=== PATIENT | female | born 1970 | race Two or more races ===

== ENCOUNTER 2024-02-11 13:47 | Inpatient (IN) | payer MEDICAID ==
[~2024-02-11] VITALS: Ht 157.5 cm; Wt 72.7 kg
[2024-02-11 01:00] VITALS: RESP 14; O2SAT 99
[2024-02-11 15:04] LABS: BASOPHILS # (AUTO) 0.1 X10'3 (0-0.2); BASOPHILS % (AUTO) 1.3 % (0-1); EOSINOPHILS % (AUTO) 0.8 % (0-6); HEMOGLOBIN 7.4 g/dl (12.0-16.0); LYMPHOCYTES % (AUTO) 20.6 % (21-51); MEAN CORPUSCULAR HEMOGLOBIN 32.8 PG (27.0-31.0); MEAN CORPUSCULAR HGB CONC 33.5 g/dL (33.0-36.5); MEAN CORPUSCULAR VOLUME 97.8 FL (78-98); MEAN PLATELET VOLUME 6.9 FL (7.4-10.4); MONOCYTES # (AUTO) 0.3 X10'3 (0-0.9); MONOCYTES % (AUTO) 5.8 % (2-12); NEUTROPHILS # (AUTO) 3.6 X10'3 (1.8-7.7); NEUTROPHILS % (AUTO) 71.5 % (42-75); RED BLOOD COUNT 2.25 X10'6 (4.20-5.60); RED CELL DISTRIBUTION WIDTH 19.7 % (11.5-14.5)
[2024-02-11 15:21] LABS: PLATELET COUNT 47 X10'3 (140-440)
[2024-02-11 15:54] LABS: PLATELET ESTIMATE NORMAL
[2024-02-11 15:55] LABS: ANISOCYTOSIS 2+; ELLIPTOCYTES FEW; POLYCHROMASIA FEW; ROULEAUX 1+; SPHEROCYTES 1+; TARGET CELLS FEW
[2024-02-11] MEDS ORDERED: magnesium sulf-water 2g/50mL 50 ML IV PRN (16:20)
[2024-02-11] MEDS ORDERED: magnesium sulf-water 4G/100mL 100 ML IV PRN (16:20)
[2024-02-11] MEDS ORDERED: acetaminophen 325mg tablet PO PRN ×2 (16:20)
[2024-02-11] MEDS ORDERED: potassium Cl 20 mEq SR tablet PO PRN ×2 (16:20)
[2024-02-11] MEDS ORDERED: potassium Cl 40MEQ/1/2NS 520ml 520 ML IV PRN (16:20)
[2024-02-11] MEDS ORDERED: haloperidol lactate 5mg/ml inj IM PRN (16:25)
[2024-02-11] MEDS ORDERED: haloperidol 5mg tablet PO PRN (16:25)
[2024-02-11] MEDS: normal saline 1000ml 1,000 ML IV SCH (17:04)
[2024-02-11] MEDS: morphine 2 MG/ML inj. syringe IV PRN (17:32)
[2024-02-11 18:32] LABS: ALANINE AMINOTRANSFERASE 16 U/L (12-78); ALBUMIN 2.2 G/DL (3.4-5.0); ALKALINE PHOSPHATASE 103 IU/L (46-116); ANION GAP 13 (8-16); ASPARTATE AMINO TRANSFERASE 135 U/L (10-37); BILIRUBIN,TOTAL 4.6 MG/DL (0.1-1.0); BLOOD UREA NITROGEN 6 MG/DL (7-18); BUN/CREATININE RATIO 4.2 (10.0-20.0); CALCIUM 7.3 MG/DL (8.5-10.1); CHLORIDE 109 MMOL/L (99-107); CREATININE 1.42 MG/DL (0.40-0.90); FERRITIN 69 NG/ML (8-252); POTASSIUM 4.5 MMOL/L (3.5-5.1); SODIUM 143 MMOL/L (135-145); eCRCL 36 ML/MIN; eGFR 39 ML/MIN
[2024-02-11 18:35] LABS: ALBUMIN/GLOBULIN RATIO 0.4 (1.1-1.5); TOTAL PROTEIN 7.6 G/DL (6.4-8.2)
[2024-02-11] MEDS ORDERED: lactulose 20gm/30ml cup PO SCH (18:55)
[2024-02-11] MEDS ORDERED: spironolactone 25 MG tablet PO SCH (19:00)
[2024-02-11 19:02] LABS: INR 1.6 INR; PROTHROMBIN TIME 16.4 SECONDS (9.0-12.0)
[2024-02-11 19:06] LABS: GLUCOSE 43 MG/DL (70-104)
[2024-02-11] MEDS ORDERED: spironolactone 50 MG tablet PO SCH (19:08)
[2024-02-11 19:10] LABS: HEMOGLOBIN A1C 4.7 % (4.5-6.2)
[2024-02-11 19:20] LABS: % IRON SATURATION 93 % (11-46); IRON 175 UG/DL (49-151); TOTAL IRON BINDING CAPACITY 189 UG/DL (259-388)
[2024-02-11] MEDS: thiamine 100mg/ml 2ml inj. IV ONE (19:25)
[2024-02-11] MEDS: dextrose 50%-water 50ml dispensing syringe IV ONE (19:27)
[2024-02-11] MEDS: lactulose 20gm/30ml cup PO SCH (19:30)
[2024-02-11] MEDS: octreotide inj. 500 MCG in normal saline 100ml IV soln 97.5 ML IV SCH (19:44)
[2024-02-11 19:54] LABS: HEMOGLOBIN 7.1 g/dl (12.0-16.0); MEAN CORPUSCULAR HGB CONC 33.5 g/dL (33.0-36.5); MEAN CORPUSCULAR VOLUME 98.4 FL (78-98); MEAN PLATELET VOLUME 8.1 FL (7.4-10.4); RED BLOOD COUNT 2.14 X10'6 (4.20-5.60); RED CELL DISTRIBUTION WIDTH 19.9 % (11.5-14.5); WHITE BLOOD COUNT 4.7 X10'3 (4.5-11.0)
[2024-02-11] MEDS: K and/or MAG REPLACEMENT MC SCH (20:00)
[2024-02-11] MEDS: heparin, porcine 5000 units/ml vial SQ SCH (20:00)
[2024-02-11 20:02] LABS: HEMATOCRIT 21.1 % (35.0-45.0); PLATELET COUNT 32 X10'3 (140-440)
[2024-02-11 20:16] LABS: POTASSIUM 4.5 MMOL/L (3.5-5.1); THYROID STIMULATING HORMONE 3.29 ulU/ml (0.34-4.50); eCRCL 36 ML/MIN; eGFR 39 ML/MIN
[2024-02-11] MEDS: propranolol 10mg tablet PO SCH (21:05)
[2024-02-11] MEDS: rifaximin 550mg tablet PO SCH (21:05)
[2024-02-11] MEDS: pantoprazole 40MG/NS 100ML BAG 100 ML IV SCH (21:05)
[2024-02-11] MEDS: LORazepam 2 mg/ml vial IV PRN (21:27)
[2024-02-11 23:16] LABS: MEAN CORPUSCULAR HGB CONC 33.5 g/dL (33.0-36.5); MEAN CORPUSCULAR VOLUME 98.7 FL (78-98); MEAN PLATELET VOLUME 7.8 FL (7.4-10.4); RED BLOOD COUNT 2.06 X10'6 (4.20-5.60); RED CELL DISTRIBUTION WIDTH 19.8 % (11.5-14.5)
[2024-02-11 23:21] LABS: HEMOGLOBIN 6.8 g/dl (12.0-16.0)
[2024-02-11 23:22] LABS: HEMATOCRIT 20.3 % (35.0-45.0); PLATELET COUNT 39 X10'3 (140-440)
[2024-02-11 23:35] VITALS: BP 122/67; PULSE 73; RESP 20; TEMP 97.3; O2SAT 99
[2024-02-12] VITALS (16 sets, daily range): BP systolic 106–140; BP diastolic 45–70; PULSE 67–80; RESP 11–21; TEMP 97.1–99.3; O2SAT 90–100
[2024-02-12] MEDS ORDERED: DEXTROSE 15 GM of carb/4 tabs (each vial/BOTTLE has 4 tablets) PO PRN ×2 (01:45)
[2024-02-12] MEDS ORDERED: glucagon, human recombinant 1mg kit SUBCUT PRN (01:45)
[2024-02-12] MEDS ORDERED: dextrose 50%-water 50ml dispensing syringe IV PRN (01:45)
[2024-02-12] MEDS: dextrose 50%-water 50ml dispensing syringe IV PRN (02:05)
[2024-02-12] MEDS: thiamine 100mg tablet PO SCH (07:42)
[2024-02-12] MEDS: multivitamins, therapeutics tablet PO SCH (07:42)
[2024-02-12] MEDS: folic acid 1mg tablet PO SCH (07:43)
[2024-02-12] MEDS: HYDROcodone/acetaminophen 5mg/325mg tablet PO PRN (07:44)
[2024-02-12 08:32] LABS: BASOPHILS # (AUTO) 0.1 X10'3 (0-0.2); BASOPHILS % (AUTO) 1.1 % (0-1); EOSINOPHILS # (AUTO) 0.1 X10'3 (0-0.9); EOSINOPHILS % (AUTO) 1.2 % (0-6); HEMATOCRIT 25.4 % (35.0-45.0); HEMOGLOBIN 8.7 g/dl (12.0-16.0); LYMPHOCYTES # (AUTO) 0.5 X10'3 (1.1-4.8); LYMPHOCYTES % (AUTO) 10.7 % (21-51); MEAN CORPUSCULAR HEMOGLOBIN 32.9 PG (27.0-31.0); MEAN CORPUSCULAR HGB CONC 34.1 g/dL (33.0-36.5); MEAN CORPUSCULAR VOLUME 96.5 FL (78-98); MEAN PLATELET VOLUME 7.6 FL (7.4-10.4); MONOCYTES # (AUTO) 0.3 X10'3 (0-0.9); MONOCYTES % (AUTO) 5.4 % (2-12); NEUTROPHILS # (AUTO) 4.1 X10'3 (1.8-7.7); NEUTROPHILS % (AUTO) 81.6 % (42-75); RED BLOOD COUNT 2.63 X10'6 (4.20-5.60); RED CELL DISTRIBUTION WIDTH 19.8 % (11.5-14.5)
[2024-02-12 08:45] LABS: INR 1.6 INR; PROTHROMBIN TIME 16.3 SECONDS (9.0-12.0)
[2024-02-12 09:08] LABS: PLATELET COUNT 41 X10'3 (140-440)
[2024-02-12 09:13] LABS: ALANINE AMINOTRANSFERASE 15 U/L (12-78); ALBUMIN 2.2 G/DL (3.4-5.0); ALKALINE PHOSPHATASE 110 IU/L (46-116); ANION GAP 11 (8-16); ASPARTATE AMINO TRANSFERASE 140 U/L (10-37); BILIRUBIN,TOTAL 6.2 MG/DL (0.1-1.0); BLOOD UREA NITROGEN 6 MG/DL (7-18); BUN/CREATININE RATIO 4.4 (10.0-20.0); CALCIUM 7.4 MG/DL (8.5-10.1); CHLORIDE 108 MMOL/L (99-107); CREATININE 1.35 MG/DL (0.40-0.90); GLUCOSE 89 MG/DL (70-104); LIPASE 26 U/L (16-77); MAGNESIUM 1.6 MG/DL (1.5-2.4); POTASSIUM 4.4 MMOL/L (3.5-5.1); SODIUM 141 MMOL/L (135-145); TOTAL CARBON DIOXIDE 22.5 MMOL/L (24-32); eCRCL 38 ML/MIN; eGFR 41 ML/MIN
[2024-02-12 09:16] LABS: ALBUMIN/GLOBULIN RATIO 0.4 (1.1-1.5); PHOSPHORUS 3.6 MG/DL (2.3-4.5); TOTAL PROTEIN 7.9 G/DL (6.4-8.2)
[2024-02-12] MEDS: CefTRIAXone 2gm/D5W 50ml BAG 50 ML IV ONE (11:16)
[2024-02-12 11:19] LABS: HEMATOCRIT 23.8 % (35.0-45.0); MEAN CORPUSCULAR HEMOGLOBIN 32.6 PG (27.0-31.0); MEAN CORPUSCULAR HGB CONC 33.8 g/dL (33.0-36.5); MEAN CORPUSCULAR VOLUME 96.5 FL (78-98); MEAN PLATELET VOLUME 7.8 FL (7.4-10.4); RED BLOOD COUNT 2.46 X10'6 (4.20-5.60); RED CELL DISTRIBUTION WIDTH 19.9 % (11.5-14.5)
[2024-02-12 11:22] LABS: PLATELET COUNT 37 X10'3 (140-440)
[2024-02-12 12:04] LABS: BASOPHILS # (AUTO) 0.1 X10'3 (0-0.2); EOSINOPHILS # (AUTO) 0.1 X10'3 (0-0.9); LYMPHOCYTES # (AUTO) 0.6 X10'3 (1.1-4.8); MEAN PLATELET VOLUME 7.8 FL (7.4-10.4); MONOCYTES # (AUTO) 0.3 X10'3 (0-0.9); RED BLOOD COUNT 2.45 X10'6 (4.20-5.60); WHITE BLOOD COUNT 5.1 X10'3 (4.5-11.0)
[2024-02-12 12:06] LABS: BASOPHILS % (AUTO) 1.5 % (0-1); EOSINOPHILS % (AUTO) 1.6 % (0-6); HEMATOCRIT 23.6 % (35.0-45.0); LYMPHOCYTES % (AUTO) 11.4 % (21-51); MEAN CORPUSCULAR HEMOGLOBIN 32.5 PG (27.0-31.0); MEAN CORPUSCULAR HGB CONC 33.8 g/dL (33.0-36.5); MEAN CORPUSCULAR VOLUME 96.4 FL (78-98); MONOCYTES % (AUTO) 6.2 % (2-12); NEUTROPHILS % (AUTO) 79.3 % (42-75); RED CELL DISTRIBUTION WIDTH 19.9 % (11.5-14.5)
[2024-02-12 12:12] LABS: PLATELET COUNT 33 X10'3 (140-440)
[2024-02-12] MEDS ORDERED: LIDOcaine 2% Viscous 15ml cup ONE (14:15)
[2024-02-12] MEDS ORDERED: MIDAZolam 1 MG/ML 5ML VIAL ONE (14:16)
[2024-02-12] MEDS ORDERED: fentaNYL/PF 50MCG/1 ML 2ML syringe ONE (14:16)
[2024-02-12 17:27] LABS: HEMATOCRIT 24.3 % (35.0-45.0); HEMOGLOBIN 8.1 g/dl (12.0-16.0); MEAN CORPUSCULAR HEMOGLOBIN 32.8 PG (27.0-31.0); MEAN CORPUSCULAR HGB CONC 33.5 g/dL (33.0-36.5); MEAN CORPUSCULAR VOLUME 97.8 FL (78-98); MEAN PLATELET VOLUME 7.7 FL (7.4-10.4); RED BLOOD COUNT 2.48 X10'6 (4.20-5.60); RED CELL DISTRIBUTION WIDTH 20.1 % (11.5-14.5)
[2024-02-12 17:30] LABS: PLATELET COUNT 34 X10'3 (140-440)
[2024-02-12] MEDS ORDERED: lactulose 20gm/30ml cup PO SCH (19:23)
[2024-02-12 20:27] LABS: BASOPHILS # (AUTO) 0.1 X10'3 (0-0.2); BASOPHILS % (AUTO) 1.1 % (0-1); EOSINOPHILS # (AUTO) 0.1 X10'3 (0-0.9); EOSINOPHILS % (AUTO) 1.1 % (0-6); HEMATOCRIT 24.8 % (35.0-45.0); HEMOGLOBIN 8.3 g/dl (12.0-16.0); LYMPHOCYTES # (AUTO) 0.7 X10'3 (1.1-4.8); LYMPHOCYTES % (AUTO) 15.6 % (21-51); MEAN CORPUSCULAR HGB CONC 33.2 g/dL (33.0-36.5); MEAN CORPUSCULAR VOLUME 99.4 FL (78-98); MEAN PLATELET VOLUME 7.5 FL (7.4-10.4); MONOCYTES # (AUTO) 0.3 X10'3 (0-0.9); MONOCYTES % (AUTO) 5.9 % (2-12); NEUTROPHILS # (AUTO) 3.6 X10'3 (1.8-7.7); NEUTROPHILS % (AUTO) 76.3 % (42-75); RED CELL DISTRIBUTION WIDTH 19.9 % (11.5-14.5); WHITE BLOOD COUNT 4.7 X10'3 (4.5-11.0)
[2024-02-12 20:42] LABS: PLATELET COUNT 33 X10'3 (140-440)
[2024-02-12] MEDS: carVEDilol 3.125mg tablet PO SCH (21:13)
[2024-02-12] MEDS: pantoprazole 40 MG vial IV SCH (21:14)
[2024-02-12 22:46] LABS: HEMATOCRIT 22.8 % (35.0-45.0); HEMOGLOBIN 7.7 g/dl (12.0-16.0); MEAN CORPUSCULAR HEMOGLOBIN 32.7 PG (27.0-31.0); MEAN CORPUSCULAR HGB CONC 33.6 g/dL (33.0-36.5); MEAN CORPUSCULAR VOLUME 97.3 FL (78-98); MEAN PLATELET VOLUME 7.6 FL (7.4-10.4); RED BLOOD COUNT 2.35 X10'6 (4.20-5.60); RED CELL DISTRIBUTION WIDTH 20.2 % (11.5-14.5); WHITE BLOOD COUNT 4.5 X10'3 (4.5-11.0)
[2024-02-12 23:14] LABS: PLATELET COUNT 37 X10'3 (140-440)
[2024-02-13] VITALS (11 sets, daily range): BP systolic 94–122; BP diastolic 47–57; PULSE 70–76; RESP 12–21; TEMP 97.2–99.9; O2SAT 91–100
[2024-02-13 06:49] LABS: EOSINOPHILS # (AUTO) 0.1 X10'3 (0-0.9); MONOCYTES # (AUTO) 0.2 X10'3 (0-0.9); NEUTROPHILS # (AUTO) 2.6 X10'3 (1.8-7.7); RED CELL DISTRIBUTION WIDTH 19.9 % (11.5-14.5); WHITE BLOOD COUNT 3.7 X10'3 (4.5-11.0)
[2024-02-13 06:51] LABS: HEMOGLOBIN 7.3 g/dl (12.0-16.0); LYMPHOCYTES # (AUTO) 0.9 X10'3 (1.1-4.8); LYMPHOCYTES % (AUTO) 23.4 % (21-51); MEAN CORPUSCULAR HEMOGLOBIN 32.5 PG (27.0-31.0); MEAN CORPUSCULAR HGB CONC 33.3 g/dL (33.0-36.5); MEAN CORPUSCULAR VOLUME 97.5 FL (78-98); MEAN PLATELET VOLUME 8.5 FL (7.4-10.4); MONOCYTES % (AUTO) 4.6 % (2-12); RED BLOOD COUNT 2.26 X10'6 (4.20-5.60)
[2024-02-13 07:00] LABS: INR 1.9 INR; PROTHROMBIN TIME 18.6 SECONDS (9.0-12.0)
[2024-02-13 07:02] LABS: ALANINE AMINOTRANSFERASE 7 U/L (12-78); ALBUMIN 1.9 G/DL (3.4-5.0); ALKALINE PHOSPHATASE 92 IU/L (46-116); ANION GAP 4 (8-16); ASPARTATE AMINO TRANSFERASE 95 U/L (10-37); BILIRUBIN,TOTAL 5.2 MG/DL (0.1-1.0); BLOOD UREA NITROGEN 10 MG/DL (7-18); BUN/CREATININE RATIO 5.4 (10.0-20.0); CALCIUM 7.2 MG/DL (8.5-10.1); CHLORIDE 109 MMOL/L (99-107); CREATININE 1.86 MG/DL (0.40-0.90); GLUCOSE 164 MG/DL (70-104); LIPASE 21 U/L (16-77); MAGNESIUM 1.3 MG/DL (1.5-2.4); SODIUM 139 MMOL/L (135-145); TOTAL CARBON DIOXIDE 26.1 MMOL/L (24-32); eCRCL 27 ML/MIN; eGFR 28 ML/MIN
[2024-02-13 07:06] LABS: ALBUMIN/GLOBULIN RATIO 0.4 (1.1-1.5); PHOSPHORUS 2.4 MG/DL (2.3-4.5); TOTAL PROTEIN 6.8 G/DL (6.4-8.2)
[2024-02-13 07:35] LABS: PLATELET COUNT 26 X10'3 (140-440)
[2024-02-13 07:38] LABS: ANISOCYTOSIS 2+; PLATELET ESTIMATE DECREASED; TOTAL CELLS COUNTED 100
[2024-02-13] MEDS ORDERED: CefTRIAXone/D5W-Rocephin 1gm 50 ML IV SCH (08:00)
[2024-02-13] MEDS: ondansetron/PF 4mg/2ml inj IV PRN (09:10)
[2024-02-13] MEDS: LORazepam 1 MG tablet PO PRN (10:33)
[2024-02-13 12:09] LABS: BASOPHILS # (AUTO) 0.1 X10'3 (0-0.2); BASOPHILS % (AUTO) 2.7 % (0-1); EOSINOPHILS # (AUTO) 0.1 X10'3 (0-0.9); EOSINOPHILS % (AUTO) 1.8 % (0-6); HEMATOCRIT 23.2 % (35.0-45.0); HEMOGLOBIN 7.7 g/dl (12.0-16.0); LYMPHOCYTES # (AUTO) 0.8 X10'3 (1.1-4.8); LYMPHOCYTES % (AUTO) 22.7 % (21-51); MEAN CORPUSCULAR HEMOGLOBIN 32.7 PG (27.0-31.0); MEAN CORPUSCULAR HGB CONC 33.1 g/dL (33.0-36.5); MEAN CORPUSCULAR VOLUME 98.6 FL (78-98); MEAN PLATELET VOLUME 7.2 FL (7.4-10.4); MONOCYTES # (AUTO) 0.2 X10'3 (0-0.9); MONOCYTES % (AUTO) 4.7 % (2-12); NEUTROPHILS # (AUTO) 2.4 X10'3 (1.8-7.7); NEUTROPHILS % (AUTO) 68.1 % (42-75); RED BLOOD COUNT 2.35 X10'6 (4.20-5.60); RED CELL DISTRIBUTION WIDTH 19.9 % (11.5-14.5); WHITE BLOOD COUNT 3.5 X10'3 (4.5-11.0)
[2024-02-13 12:12] LABS: PLATELET COUNT 39 X10'3 (140-440)
[2024-02-13] MEDS: spironolactone 25 MG tablet PO SCH (14:45)
[2024-02-13 15:28] LABS: CREATININE 1.95 MG/DL (0.40-0.90); eCRCL 26 ML/MIN; eGFR 27 ML/MIN
[2024-02-13 15:45] LABS: POTASSIUM 4.2 MMOL/L (3.5-5.1)
[2024-02-13 19:20] LABS: BASOPHILS % (AUTO) 1.5 % (0-1); EOSINOPHILS # (AUTO) 0.1 X10'3 (0-0.9); LYMPHOCYTES # (AUTO) 0.7 X10'3 (1.1-4.8); LYMPHOCYTES % (AUTO) 21.3 % (21-51); MEAN CORPUSCULAR HEMOGLOBIN 32.5 PG (27.0-31.0); MEAN CORPUSCULAR HGB CONC 33.2 g/dL (33.0-36.5); MEAN CORPUSCULAR VOLUME 97.8 FL (78-98); MEAN PLATELET VOLUME 8.1 FL (7.4-10.4); MONOCYTES # (AUTO) 0.1 X10'3 (0-0.9); MONOCYTES % (AUTO) 4.8 % (2-12); NEUTROPHILS # (AUTO) 2.2 X10'3 (1.8-7.7); NEUTROPHILS % (AUTO) 70.4 % (42-75); RED BLOOD COUNT 2.09 X10'6 (4.20-5.60); RED CELL DISTRIBUTION WIDTH 19.5 % (11.5-14.5); WHITE BLOOD COUNT 3.1 X10'3 (4.5-11.0)
[2024-02-13 19:23] LABS: HEMATOCRIT 20.4 % (35.0-45.0); HEMOGLOBIN 6.8 g/dl (12.0-16.0); PLATELET COUNT 34 X10'3 (140-440)
[2024-02-13] MEDS: diphenhydrAMINE 25mg capsule PO ONE (21:33)
[2024-02-13] MEDS: magnesium Cl slow-release 64mg tablet PO PRN (21:50)
[2024-02-13] MEDS: pantoprazole 40mg Tablet.DR PO SCH (21:51)
[2024-02-14] VITALS (9 sets, daily range): BP systolic 107–138; BP diastolic 43–68; PULSE 68–78; RESP 15–19; TEMP 97.9–98.6; O2SAT 92–100
[2024-02-14 05:02] LABS: HEMATOCRIT 23.4 % (35.0-45.0); HEMOGLOBIN 7.7 g/dl (12.0-16.0); MEAN CORPUSCULAR HEMOGLOBIN 31.4 PG (27.0-31.0); MEAN CORPUSCULAR HGB CONC 33.2 g/dL (33.0-36.5); MEAN CORPUSCULAR VOLUME 94.8 FL (78-98); MEAN PLATELET VOLUME 7.2 FL (7.4-10.4); RED BLOOD COUNT 2.47 X10'6 (4.20-5.60); RED CELL DISTRIBUTION WIDTH 21.8 % (11.5-14.5); WHITE BLOOD COUNT 3.3 X10'3 (4.5-11.0)
[2024-02-14 05:04] LABS: PLATELET COUNT 35 X10'3 (140-440)
[2024-02-14 05:17] LABS: ALANINE AMINOTRANSFERASE 10 U/L (12-78); ALBUMIN/GLOBULIN RATIO 0.4 (1.1-1.5); ALKALINE PHOSPHATASE 92 IU/L (46-116); ANION GAP 9 (8-16); ASPARTATE AMINO TRANSFERASE 75 U/L (10-37); BILIRUBIN,TOTAL 3.8 MG/DL (0.1-1.0); BLOOD UREA NITROGEN 14 MG/DL (7-18); BUN/CREATININE RATIO 6.5 (10.0-20.0); CALCIUM 7.6 MG/DL (8.5-10.1); CHLORIDE 105 MMOL/L (99-107); CREATININE 2.15 MG/DL (0.40-0.90); GLUCOSE 112 MG/DL (70-104); POTASSIUM 3.8 MMOL/L (3.5-5.1); SODIUM 137 MMOL/L (135-145); TOTAL PROTEIN 6.8 G/DL (6.4-8.2); eCRCL 24 ML/MIN; eGFR 24 ML/MIN
[2024-02-14] MEDS: albumin (Human) 5% 250ml 250 ML IV ONE (09:26)
[2024-02-14 11:37] LABS: INR 1.8 INR; PROTHROMBIN TIME 17.6 SECONDS (9.0-12.0)
[2024-02-14 18:01] LABS: ALANINE AMINOTRANSFERASE 19 U/L (12-78); ALBUMIN 2.2 G/DL (3.4-5.0); ALBUMIN/GLOBULIN RATIO 0.4 (1.1-1.5); ALKALINE PHOSPHATASE 92 IU/L (46-116); ASPARTATE AMINO TRANSFERASE 81 U/L (10-37); BILIRUBIN,TOTAL 3.5 MG/DL (0.1-1.0); BLOOD UREA NITROGEN 14 MG/DL (7-18); BUN/CREATININE RATIO 6.4 (10.0-20.0); CALCIUM 7.6 MG/DL (8.5-10.1); CHLORIDE 103 MMOL/L (99-107); CREATININE 2.19 MG/DL (0.40-0.90); GLUCOSE 131 MG/DL (70-104); POTASSIUM 3.8 MMOL/L (3.5-5.1); SODIUM 135 MMOL/L (135-145); TOTAL PROTEIN 7.6 G/DL (6.4-8.2); eCRCL 23 ML/MIN; eGFR 23 ML/MIN
[2024-02-14 18:08] LABS: ANION GAP 9 (8-16); TOTAL CARBON DIOXIDE 23.4 MMOL/L (24-32)
[2024-02-14] MEDS: LORazepam 1 MG tablet PO PRN (19:15)
[2024-02-15] VITALS (8 sets, daily range): BP systolic 82–122; BP diastolic 42–60; PULSE 56–74; RESP 14–20; TEMP 96.9–98.4; O2SAT 97–100
[2024-02-15 06:59] LABS: ALANINE AMINOTRANSFERASE 11 U/L (12-78); ALBUMIN 2.2 G/DL (3.4-5.0); ALBUMIN/GLOBULIN RATIO 0.4 (1.1-1.5); ALKALINE PHOSPHATASE 88 IU/L (46-116); ANION GAP 9 (8-16); ASPARTATE AMINO TRANSFERASE 73 U/L (10-37); BILIRUBIN,TOTAL 3.5 MG/DL (0.1-1.0); BLOOD UREA NITROGEN 14 MG/DL (7-18); BUN/CREATININE RATIO 7.2 (10.0-20.0); CALCIUM 7.8 MG/DL (8.5-10.1); CHLORIDE 102 MMOL/L (99-107); CREATININE 1.94 MG/DL (0.40-0.90); GLUCOSE 113 MG/DL (70-104); POTASSIUM 3.7 MMOL/L (3.5-5.1); SODIUM 134 MMOL/L (135-145); TOTAL CARBON DIOXIDE 22.8 MMOL/L (24-32); TOTAL PROTEIN 7.5 G/DL (6.4-8.2); eCRCL 26 ML/MIN; eGFR 27 ML/MIN
[2024-02-15 07:13] LABS: BASOPHILS % (AUTO) 0.8 % (0-1); EOSINOPHILS % (AUTO) 1.6 % (0-6); HEMATOCRIT 24.9 % (35.0-45.0); HEMOGLOBIN 8.3 g/dl (12.0-16.0); LYMPHOCYTES # (AUTO) 0.6 X10'3 (1.1-4.8); LYMPHOCYTES % (AUTO) 21.6 % (21-51); MEAN CORPUSCULAR HEMOGLOBIN 31.7 PG (27.0-31.0); MEAN CORPUSCULAR HGB CONC 33.4 g/dL (33.0-36.5); MEAN CORPUSCULAR VOLUME 95.1 FL (78-98); MEAN PLATELET VOLUME 7.9 FL (7.4-10.4); MONOCYTES # (AUTO) 0.1 X10'3 (0-0.9); MONOCYTES % (AUTO) 4.7 % (2-12); NEUTROPHILS # (AUTO) 2.1 X10'3 (1.8-7.7); NEUTROPHILS % (AUTO) 71.3 % (42-75); RED BLOOD COUNT 2.62 X10'6 (4.20-5.60); RED CELL DISTRIBUTION WIDTH 21.3 % (11.5-14.5); WHITE BLOOD COUNT 2.9 X10'3 (4.5-11.0)
[2024-02-15 07:15] LABS: PLATELET COUNT 35 X10'3 (140-440)
[2024-02-15 08:34] LABS: TOTAL CELLS COUNTED 100
[2024-02-15 08:35] LABS: ANISOCYTOSIS 3+; PLATELET ESTIMATE DECREASED
[2024-02-15 08:36] LABS: TEAR DROP CELLS FEW
[2024-02-15] MEDS ORDERED: lactulose 20gm/30ml cup PO SCH (12:00)
[2024-02-15] MEDS: lactulose 20gm/30ml cup PO SCH (15:08)
[2024-02-15 18:51] LABS: INR 1.6 INR; PROTHROMBIN TIME 16.6 SECONDS (9.0-12.0)
[2024-02-16] VITALS (8 sets, daily range): BP systolic 99–130; BP diastolic 44–82; PULSE 59–66; RESP 15–20; TEMP 97.4–99; O2SAT 97–100
[2024-02-16 07:12] LABS: LYMPHOCYTES # (AUTO) 0.8 X10'3 (1.1-4.8); MONOCYTES # (AUTO) 0.2 X10'3 (0-0.9); NEUTROPHILS # (AUTO) 1.8 X10'3 (1.8-7.7); RED CELL DISTRIBUTION WIDTH 21.5 % (11.5-14.5); WHITE BLOOD COUNT 2.9 X10'3 (4.5-11.0)
[2024-02-16 07:15] LABS: BASOPHILS % (AUTO) 1.1 % (0-1); EOSINOPHILS % (AUTO) 1.4 % (0-6); HEMATOCRIT 22.2 % (35.0-45.0); HEMOGLOBIN 7.3 g/dl (12.0-16.0); LYMPHOCYTES % (AUTO) 28.7 % (21-51); MEAN CORPUSCULAR HEMOGLOBIN 31.5 PG (27.0-31.0); MEAN CORPUSCULAR VOLUME 95.4 FL (78-98); MEAN PLATELET VOLUME 7.8 FL (7.4-10.4); NEUTROPHILS % (AUTO) 61.8 % (42-75); RED BLOOD COUNT 2.32 X10'6 (4.20-5.60)
[2024-02-16 07:38] LABS: PLATELET COUNT 35 X10'3 (140-440)
[2024-02-16 07:41] LABS: ALANINE AMINOTRANSFERASE 9 U/L (12-78); ALBUMIN/GLOBULIN RATIO 0.4 (1.1-1.5); ALKALINE PHOSPHATASE 86 IU/L (46-116); ANION GAP 9 (8-16); ASPARTATE AMINO TRANSFERASE 67 U/L (10-37); BILIRUBIN,TOTAL 2.3 MG/DL (0.1-1.0); BLOOD UREA NITROGEN 15 MG/DL (7-18); BUN/CREATININE RATIO 6.8 (10.0-20.0); CALCIUM 7.5 MG/DL (8.5-10.1); CHLORIDE 106 MMOL/L (99-107); CREATININE 2.22 MG/DL (0.40-0.90); GLUCOSE 88 MG/DL (70-104); POTASSIUM 3.7 MMOL/L (3.5-5.1); SODIUM 135 MMOL/L (135-145); TOTAL CARBON DIOXIDE 20.5 MMOL/L (24-32); TOTAL PROTEIN 6.9 G/DL (6.4-8.2); eCRCL 23 ML/MIN; eGFR 23 ML/MIN
[2024-02-16] MEDS: ringers solution, lacted 1,000 ML IV SCH (08:48)
[2024-02-16 09:12] LABS: TOTAL CELLS COUNTED 100
[2024-02-16 09:15] LABS: ANISOCYTOSIS 3+; PLATELET ESTIMATE DECREASED
[2024-02-16 09:18] LABS: INR 1.6 INR; PROTHROMBIN TIME 16.4 SECONDS (9.0-12.0)
[2024-02-16 09:41] LABS: BILIRUBIN,URINE SMALL (Neg); CLARITY,URINE SLIGHTLY CLOUDY (Clear); COLOR,URINE YELLOW (Yellow); GLUCOSE, URINE NEGATIVE (Neg); KETONES,URINE TRACE mg/dl (Neg); LEUKOCYTE ESTERASE ,URINE SMALL (Neg); NITRITES, URINE NEGATIVE (Neg); OCCULT BLOOD,URINE LARGE (Neg); PH,URINE 5.5 (4.8-8.0); PROTEIN,URINE TRACE mg/dl (Neg); UROBILINOGEN,URINE 0.2 E.U/dL (0.2-1.0)
[2024-02-16 09:42] LABS: UA COLLECTION TYPE NON-SPECIFIED
[2024-02-16 09:52] LABS: SQUAMOUS EPITHELIAL CELL,UR MANY /LPF (FEW)
[2024-02-16 09:53] LABS: BACTERIA,URINE 1+ /HPF (Neg)
[2024-02-16 15:54] LABS: HEMATOCRIT 23.8 % (35.0-45.0); HEMOGLOBIN 7.9 g/dl (12.0-16.0); MEAN CORPUSCULAR HEMOGLOBIN 32.3 PG (27.0-31.0); MEAN CORPUSCULAR HGB CONC 33.3 g/dL (33.0-36.5); MEAN CORPUSCULAR VOLUME 97.2 FL (78-98); MEAN PLATELET VOLUME 7.6 FL (7.4-10.4); RED BLOOD COUNT 2.45 X10'6 (4.20-5.60); RED CELL DISTRIBUTION WIDTH 22.1 % (11.5-14.5); WHITE BLOOD COUNT 3.1 X10'3 (4.5-11.0)
[2024-02-16 16:02] LABS: PLATELET COUNT 43 X10'3 (140-440)
[2024-02-16 16:09] LABS: ALBUMIN 2.2 G/DL (3.4-5.0); ANION GAP 10 (8-16); BLOOD UREA NITROGEN 16 MG/DL (7-18); CALCIUM 7.6 MG/DL (8.5-10.1); CHLORIDE 103 MMOL/L (99-107); CREATININE 2.28 MG/DL (0.40-0.90); GLUCOSE 119 MG/DL (70-104); POTASSIUM 3.8 MMOL/L (3.5-5.1); SODIUM 134 MMOL/L (135-145); TOTAL CARBON DIOXIDE 20.7 MMOL/L (24-32); eCRCL 22 ML/MIN; eGFR 22 ML/MIN
[2024-02-17 02:00] VITALS: BP 102/55; PULSE 54; RESP 18; TEMP 98.1; O2SAT 94
[2024-02-17 06:00] VITALS: BP 118/58; PULSE 58; RESP 18; TEMP 98; O2SAT 98
[2024-02-17 07:36] LABS: HEMOGLOBIN 8.2 g/dl (12.0-16.0); LYMPHOCYTES # (AUTO) 0.9 X10'3 (1.1-4.8); MEAN CORPUSCULAR HGB CONC 33.2 g/dL (33.0-36.5); MONOCYTES # (AUTO) 0.2 X10'3 (0-0.9); RED CELL DISTRIBUTION WIDTH 22.2 % (11.5-14.5)
[2024-02-17 07:38] LABS: EOSINOPHILS % (AUTO) 0.7 % (0-6); HEMATOCRIT 24.6 % (35.0-45.0); MEAN CORPUSCULAR HEMOGLOBIN 32.1 PG (27.0-31.0); MEAN CORPUSCULAR VOLUME 96.5 FL (78-98); MONOCYTES % (AUTO) 7.1 % (2-12); NEUTROPHILS # (AUTO) 2.1 X10'3 (1.8-7.7); NEUTROPHILS % (AUTO) 63.2 % (42-75); RED BLOOD COUNT 2.55 X10'6 (4.20-5.60); WHITE BLOOD COUNT 3.3 X10'3 (4.5-11.0)
[2024-02-17 07:54] LABS: PLATELET COUNT 43 X10'3 (140-440)
[2024-02-17 07:57] LABS: ALANINE AMINOTRANSFERASE 10 U/L (12-78); ALBUMIN 2.2 G/DL (3.4-5.0); ALBUMIN/GLOBULIN RATIO 0.4 (1.1-1.5); ALKALINE PHOSPHATASE 92 IU/L (46-116); ANION GAP 10 (8-16); ASPARTATE AMINO TRANSFERASE 81 U/L (10-37); BILIRUBIN,TOTAL 2.4 MG/DL (0.1-1.0); BLOOD UREA NITROGEN 15 MG/DL (7-18); BUN/CREATININE RATIO 7.3 (10.0-20.0); CALCIUM 7.7 MG/DL (8.5-10.1); CHLORIDE 103 MMOL/L (99-107); CREATININE 2.05 MG/DL (0.40-0.90); GLUCOSE 99 MG/DL (70-104); POTASSIUM 4.1 MMOL/L (3.5-5.1); SODIUM 133 MMOL/L (135-145); TOTAL CARBON DIOXIDE 19.8 MMOL/L (24-32); TOTAL PROTEIN 7.6 G/DL (6.4-8.2); eCRCL 25 ML/MIN; eGFR 25 ML/MIN
[2024-02-17 08:00] VITALS: RESP 20; O2SAT 99
[2024-02-17] MEDS: FLU VACC TS2024-25(6MOS UP)/PF 45 MCG/0.5 ML SYRINGE IMVAC ONE (10:54)
[2024-02-17 11:00] VITALS: BP 108/48; PULSE 62; RESP 13; TEMP 98.1; O2SAT 100
[2024-02-17 11:19] VITALS: RESP 20
[2024-02-17] MEDS ORDERED: FOLI1TAB27 PO (11:34)
[2024-02-17] MEDS ORDERED: LACT10SO7 PO (11:34)
[2024-02-17] MEDS ORDERED: PANT40TA54 PO (11:34)
[2024-02-17] MEDS ORDERED: CARV-164 PO (11:34)
[2024-02-17] MEDS ORDERED: MULT-25 PO (11:34)
[2024-02-17] MEDS ORDERED: RIFA550T PO (11:34)
[2024-02-17] MEDS ORDERED: FERR324T4 PO (11:34)
[2024-02-17] MEDS ORDERED: ACAM333T8 PO (11:34)
== END 2024-02-17 15:40 | disposition home health service (06) | DRG 253 ==
LOC: ER 13:48 → ED HOLD 16:25 → PCU 3S 23:19
PROVIDERS: ADMIT Internal Medicine; ATTEND Internal Medicine
PROC: 0DJ08ZZ Inspection of Upper Intestinal Tract, Via Natural or Artificial Opening Endoscopic (ICD-10-PCS; principal; 2024-02-12)
PROC: 30233N1 Transfusion of Nonautologous Red Blood Cells into Peripheral Vein, Percutaneous Approach (ICD-10-PCS; 2024-02-12)
DX: K92.0 Hematemesis (principal); K72.00 Acute and subacute hepatic failure without coma; N17.0 Acute kidney failure with tubular necrosis; D69.6 Thrombocytopenia, unspecified; E16.1 Other hypoglycemia; E66.2 Morbid (severe) obesity with alveolar hypoventilation; E87.20 Acidosis, unspecified; I12.9 Hypertensive chronic kidney disease with stage 1 through stage 4 chronic kidney disease, or unspecified chronic kidney disease; D62 Acute posthemorrhagic anemia; K76.82 Hepatic encephalopathy; K70.31 Alcoholic cirrhosis of liver with ascites; E78.5 Hyperlipidemia, unspecified; E11.22 Type 2 diabetes mellitus with diabetic chronic kidney disease; K76.6 Portal hypertension; E80.6 Other disorders of bilirubin metabolism; K72.10 Chronic hepatic failure without coma; K31.89 Other diseases of stomach and duodenum; N18.30 Chronic kidney disease, stage 3 unspecified; E03.9 Hypothyroidism, unspecified; R74.01 Elevation of levels of liver transaminase levels; Z68.29 Body mass index [BMI] 29.0-29.9, adult; Z91.041 Radiographic dye allergy status
CPT/HCPCS: 36415; 36430; 43235; 74176; 80048; 80053; 81001; 82103; 82140; 82565; 82728; 82948; 83036; 83540; 83550; 83605; 83690; 83735; 84100; 84132; 84443; 85007; 85008; 85025; 85027; 85610; 86885; 86900; 86901; 86920; 87081; 90686; 93306; 97110; 97116; 97161; 97530; 99152; 99285; A4615; A4620; G0378; J0696; J2060; J2250; J2270; J2354; J2405; J2470; J3010; J3411; J3490; J7030; J7040; J7120; P9016; P9045; Q0163